=== PATIENT | male | born 1960 | race Caucasian/White ===

== ENCOUNTER 2017-09-14 11:28 | Emergency (ER) | payer OTHER ==
[~2017-09-14] VITALS: Ht 180.3 cm; Wt 109.1 kg
[2017-09-14 11:31] VITALS: Ht 180.3 cm; Wt 109.1 kg
[2017-09-14] MEDS ORDERED: SYNTHROID125 MCG PO (11:33)
[2017-09-14 11:51] LABS: BASOPHILS 0.3 % (0-2); EOSINOPHILS 2.1 % (0-7); HEMATOCRIT 45.4 % (42.0-54.0); HEMOGLOBIN 15.5 g/dL (13.5-17.5); LYMPHOCYTES 34.4 % (15-50); MCH 29.8 pg (26.0-34.0); MCHC 34.1 g/dL (31.0-37.0); MCV 87.1 fL (80.0-100.0); MEAN PLATELET VOLUME 11.6 fL (7.4-10.4); MONOCYTES 9.9 % (2-11); NEUTROPHILS 53.3 % (40-80); PLATELET COUNT 208 10x3/uL (130-400); RBC 5.21 10x6/uL (4.20-6.10); RDW 12.6 % (11.5-14.5); WBC 5.8 10x3/uL (4.8-10.8)
[2017-09-14 12:09] LABS: ALBUMIN 3.8 g/dL (3.4-5.0); ALKALINE PHOSPHATASE 84 U/L (46-116); ALT (SGPT) 31 U/L (10-68); AMYLASE - SERUM 44 U/L (25-115); BILIRUBIN - TOTAL 1.19 mg/dL (0.2-1.3); CALC OSMOLALITY 270 mosm/kg (275-300); CALCIUM 8.9 mg/dL (8.5-10.1); CARBON DIOXIDE 29.9 mmol/L (21.0-32.0); CHLORIDE - SERUM 103 mmol/L (98-107); GLUCOSE 106 mg/dL (74-106); LIPASE 116 U/L (73-393); POTASSIUM - SERUM 4.1 mmol/L (3.5-5.1); PROTEIN - SERUM 7.7 g/dL (6.4-8.2); SODIUM 136 mmol/L (136-145); UREA NITROGEN 11 mg/dL (7-18); eGFR NON AFRICAN AMERICAN 82 mL/min (90-120)
[2017-09-14 12:47] LABS: UDS - AMPHET NEGATIVE QUAL (NEGATIVE); UDS - BARB NEGATIVE QUAL (NEGATIVE); UDS - BENZO NEGATIVE QUAL (NEGATIVE); UDS - COCAINE NEGATIVE QUAL (NEGATIVE); UDS - OPIATE POSITIVE QUAL (NEGATIVE); UDS - PCP NEGATIVE QUAL (NEGATIVE); UDS - THC NEGATIVE QUAL (NEGATIVE)
[2017-09-14 12:58] LABS: APPEARANCE CLOUDY (CLEAR); COLOR YELLOW (YELLOW)
[2017-09-14 13:00] LABS: BACTERIA FEW /hpf (NONE SEEN); BILIRUBIN NEGATIVE (NEGATIVE); EPITHELIAL CELLS OCC /hpf (0-5); GLUCOSE NEGATIVE (NEGATIVE); KETONE NEGATIVE (NEGATIVE); MUCUS >1+ /lpf (NONE SEEN); NITRITE NEGATIVE (NEGATIVE); PROTEIN NEGATIVE (NEGATIVE); RED CELLS - URINE 25-50 /hpf (0-5); WHITE CELLS - URINE OCC /hpf (0-5)
[2017-09-14] MEDS ORDERED: FLOMAX0.4 MG PO (14:23)
[2017-09-14] MEDS ORDERED: HYDROCODON-ACE1 EAC7 PO (14:23)
[2017-09-14 14:34] VITALS: BP 137/83
== END 2017-09-14 14:34 | disposition home or self-care (01) ==
LOC: D.ER 11:28
PROVIDERS: Family Medicine
DX: N20.1 Calculus of ureter (principal)

== ENCOUNTER → 2018-12-02 10:19 | Outpatient (CLI) | payer BC ==
[2017-09-14 11:31] VITALS: BMI 33.5
[~2018-12-02 10:19] MED LIST: FLOMAX0.4 MG PO; HYDROCODON-ACE1 EAC7 PO; SYNTHROID125 MCG PO
== END | disposition home or self-care (01) ==
LOC: D.HCCECHO 10:19
PROVIDERS: ATTEND Internal Medicine Cardiovascular Disease
DX: R00.1 Bradycardia, unspecified (principal)